=== PATIENT | male | born 1985 | race Caucasian/White ===

== ENCOUNTER → 2020-09-18 08:59 | Outpatient (CLI) | payer BC, SELFPAY ==
--- NOTE | ~2020-09-18 | MR_ITS ---
EXAMINATION: MR brain/brain stem wo/w con DATE: 09/18/2020 09:56 INDICATION: Dizziness. Headache. TECHNIQUE: Magnetic resonance imaging (MRI) of the brain and brainstem was performed without and with 15 mL MultiHance intravenous contrast. Sequences included sagittal and axial T1-weighted FSE, axial diffusion-weighted FS EPI, axial T2*-weighted GRE, axial T2-weighted FLAIR Propeller, axial T2-weight ed Propeller, small pedji-ly-gigm coronal FIESTA, small jedeq-sk-cyte coronal T1-weighted FSE, and sm all bkamw-wm-lqgl axial T1-weighted SPGR. Postcontrast sequences included axial T1-weighted FSE, smal l mkjkm-je-cahv coronal T1-weighted FSE, and small dbzkj-fc-wrsm axial T1-weighted SPGR. Apparent dif fusion coefficient (ADC) maps were created. COMPARISON: Head CT 06/03/2015 FINDINGS: There is no intracranial hemorrhage, acute infarction, or abnormal intracranial mass lesion . The ventricles are normal in size. The orbits are normal. The paranasal sinuses are clear. The inte rnal auditory canals and inner and middle ears are normal. The mastoid air cells are normal. IMPRESSION: 1. Normal brain. Reviewed, dictated and finalized at location A. [employer] IMPRESSION: 1. Normal brain.
[2020-09-18 09:21] LABS: Estimated Glomerular Filt Rate > 60
== END ==
PROVIDERS: PCP Family Medicine; Visit Provider Family Medicine
DX: R42 Dizziness and giddiness (principal); J32.9 Chronic sinusitis, unspecified
CPT/HCPCS: 70553; A9577